=== PATIENT | female | born 1980 | race African-American/Black ===

== ENCOUNTER 2022-01-14 08:17 | Emergency (ER) | payer SELFPAY ==
[~2022-01-14] VITALS: Ht 154.9 cm; Wt 79.4 kg
[2022-01-14] MEDS ORDERED: ACETAMINOPHEN 325 MG TAB PO ONE (08:30)
[2022-01-14 08:58] VITALS: BP 147/82
== END 2022-01-14 09:54 | disposition home or self-care (01) ==
LOC: ER 08:37
DX: M79.631 Pain in right forearm (principal); M65.831 Other synovitis and tenosynovitis, right forearm; M79.7 Fibromyalgia; Z33.1 Pregnant state, incidental
CPT/HCPCS: 99283